=== PATIENT | female | born 1960 | race Caucasian/White ===

== ENCOUNTER 2016-12-01 14:16 | Outpatient (CLI) | payer BC ==
--- NOTE | 2016-12-01 18:11 | RAD ---
RIGHT KNEE FOUR VIEWS: 12/01/16 The patient presents with chronic knee pain. No acute fracture was seen. There may be some very slight medial joint space narrowing but it is min imal. A cleft in the upper outer aspect of the patient's patella is consistent with a bipartite sena lla, a common anatomical variant. It does not have the appearance of an acute fracture. The patient does, however, appear to have a joint effusion. IMPRESSION: 1. Joint effusion. 2. Very minor medial joint space narrowing. 3. Bipartite patella. POS: [facility]
== END 2016-12-01 14:17 | disposition home or self-care (01) ==
LOC: BURRAD 14:16
PROVIDERS: ATTEND Family Medicine
DX: M25.561 Pain in right knee (principal); M25.461 Effusion, right knee; Q74.1 Congenital malformation of knee